=== PATIENT | female | born 1980 | race Caucasian/White ===

== ENCOUNTER → 2017-04-29 | Outpatient (CLI) | payer MEDICAID ==
[2017-04-29 16:28] LABS: ALBUMIN 4.1 gm/dL (3.5-5.0); ANION GAP 10.3 (10.0-19.0); CALCIUM 8.8 mg/dL (8.5-10.5); CREATININE 0.9 mg/dL (0.5-1.1); POTASSIUM 3.3 mMol/L (3.7-5.1); TOTAL BILIRUBIN 0.5 mg/dL (0.0-1.5); TOTAL PROTEIN 7.9 g/dL (6.0-8.4)
== END | disposition disaster alternative care site (69) ==
LOC: LNHI 16:07
PROVIDERS: Internal Medicine Interventional Cardiology
DX: I10 Essential (primary) hypertension (principal)